=== PATIENT | female | born 2000 | race Caucasian/White ===

== ENCOUNTER 2018-09-15 | Emergency (ER) | payer BC, OTHER ==
[~2018-09-15] VITALS: Ht 175.3 cm; Wt 117.0 kg
[~2018-09-15] MED LIST: ALBU18HF
[2018-09-15 00:06] VITALS: BP 144/97
[2018-09-15] MEDS ORDERED: DEXAMETHASONE 4 MG TABLET ONE (00:29)
[2018-09-15] MEDS ORDERED: DEXAMETHASONE 4 MG TABLET PO ONE (00:30)
[2018-09-15 00:38] LABS: BASOPHILS # (AUTO) 0.03 x10^3/uL (0-0.3); BASOPHILS % (AUTO) 0 % (0-1); EOSINOPHILS # (AUTO) 0.22 x10^3/uL (0-0.8); EOSINOPHILS % (AUTO) 2 % (1-7); LYMPHOCYTES # (AUTO) 2.16 x10^3/uL (1-6.1); LYMPHOCYTES % (AUTO) 20 % (22-44); MD NO; MEAN CORPUSCULAR HEMOGLOBIN 29.1 pg (27.0-34.8); MEAN CORPUSCULAR HGB CONC 33.7 g/dL (32.4-35.8); MEAN CORPUSCULAR VOLUME 86.5 fL (80-100); MONOCYTES # (AUTO) 0.77 x10^3/uL (0-1.4); MONOCYTES % (AUTO) 7 % (2-9); NEUTROPHILS # (AUTO) 7.39 x10^3/uL (1.8-8.0); NEUTROPHILS % (AUTO) 70 % (42-75); PLATELET COUNT 278 x10^3/uL (130-400); RED BLOOD COUNT 4.66 x10^6/uL (3.82-5.3); RED CELL DISTRIBUTION WIDTH 13.1 % (9.6-15.2)
== END 2018-09-15 02:10 | disposition home or self-care (01) ==
LOC: ED 00:42
DX: J03.90 Acute tonsillitis, unspecified (principal); Z88.0 Allergy status to penicillin; J45.909 Unspecified asthma, uncomplicated
CPT/HCPCS: 36415; 85025; 86308; 87081; 87880; 99283